=== PATIENT | male | born 1970 | race Two or more races ===

== ENCOUNTER 2025-02-19 07:13 | Emergency (ER) | payer MEDICAID, OTHER ==
[~2025-02-19] VITALS: Ht 175.3 cm; Wt 100.0 kg
--- NOTE | 2025-02-19 08:57 | ED.PDOC ---
General HPI Comments 55 y/o M, with PMHx of enlarged prostate presents to the ED for CC of urinary retention. Patient states, he has been experiencing urinary retention with associated symptoms of abdominal pain/distension and constipation xdays. Patient reports, seeing PCP for SS and being told to follow up with the ED for a further evaluation of symptoms. Patient denies fever, chills, nausea, vomiting, or melena. No other symptoms or modifying factors present at this time. Chief Complaint: Urinary Time Seen by MD: 08:45 Reviewed notes: Nurses Notes, Medications, Allergies Allergies: Coded Allergies: NO KNOWN ALLERGIES (Unverified , 02/19/25) Mode of Arrival: Ambulatory Severity: Moderate Inability to void: Moderate Timing: Days Duration: Since onset Prehospital treatment: None Onset: Spontaneous Symptoms: Inability to void History of: None Location: Abdomen Penile discharge: None Modifying factors: None associated signs and symptoms: Abdominal Pain Past Medical History PAST MEDICAL HISTORY: Denies Surgical History: Denies all surgeries Family History Family History: Unknown Social History Smoker: Non-Smoker Alcohol: Denies ETOH Use Drugs: Denies Drug Use Lives In: Home Constitutional: denies: chills, diaphoresis, fatigue, fever, malaise, sweats, weakness, others EENTM: denies: blurred vision, double vision, ear bleeding, ear discharge, ear drainage, ear pain, ear ringing, eye pain, eye redness, hearing loss, mouth pain, mouth swelling, nasal discharge, nose bleeding, nose congestion, nose pain, photophobia, tearing, throat pain, throat swelling, voice changes, others Respiratory: denies: cough, hemoptysis, orthopnea, SOB at rest, shortness of breath, SOB with excertion, stridor, wheezing, others Cardiovascular: denies: chest pain, dizzy spells, diaphoresis, Dyspnea on exertion, edema, irregular heart beat, left arm pain, lightheadedness, palpitations, PND, syncope, others Gastrointestinal: reports: abdomen distended, abdominal pain, constipated; denies: blood streaked bowels, diarrhea, dysphagia, difficulty swallowing, hematemesis, melena, nausea, poor appetite, poor fluid intake, rectal bleeding, rectal pain, vomiting, others Genitourinary: reports: others (urinary retention); denies: burning, dysuria, flank pain, frequency, hematuria, incontinence, penile discharge, penile sore, pain, testicle pain, testicle swelling, urgency Neurological: denies: dizziness, fainting, headache, left sided numbness, left sided weakness, numbness, paresthesia, pre-existing deficit, right sided numbness, right sided weakness, seizure, speech problems, tingling, tremors, weakness, others Musculoskeletal: denies: back pain, gout, joint pain, joint swelling, muscle pain, muscle stiffness, neck pain, others Integumetry: denies: bruises, change in color, change in hair/nails, dryness, laceration, lesions, lumps, rash, wounds, others Allergic/Immunocompromised: denies: Difficulty Healing, Frequent Infections, Hives, Itching, others Hematologic/Lymphatic: denies: anemia, blood clots, easy bleeding, easy bruising, swollen glands, others Endocrine: denies: excessive hunger, excessive sweating, excessive thirst, excessive urination, flushing, intolerance to cold, intolerance to heat, unexplained weight gain, unexplained weight loss, others Psychiatric: denies: anxiety, bipolar disorder, depression, hopeless, panic disorder, schizophrenia, sleepless, suicidal, others All Other Systems: Reviewed and Negative Physical Exam General Appearance: Moderate Distress, Obese HEENT: Normal ENT Inspection, Pharynx Normal, TMs Normal Neck: Full Range of Motion, Non-Tender, Normal, Normal Inspection Respiratory: Chest Non-Tender, Lungs Clear, No Accessory Muscle Use, No Respiratory Distress, Normal Breath Sounds Cardiovascular: No Edema, No JVD, No Murmur, No Gallop, Normal Peripheral Pulses, Regular Rate/Rhythm Breast Exam: Deferred Gastrointestinal: Diffuse Genitalia: Deferred Pelvic: Deferred Rectal: Deferred Extremities: No calf tenderness, Normal capillary refill, Normal inspection, Normal range of motion, Non-tender, No pedal edema Musculoskeletal : Apperance: Normal Neurologic: Alert, legislators II-XII nml as Tested, No Motor Deficits, Normal Affect, Normal Mood, No Sensory Deficits Cerebellar Function: Normal Reflexes: Normal Skin: Dry, Normal Color, Warm Peripheral Pulses: 3+ Radial (R), 3+ Radial (L) Lymphatic: No Adenopathy Was a procedure done? Was a procedure done?: No Differential Diagnosis Kidney stone (Female): N/A Urinary Problem (Male): Bladder Outlet, Bladder Obstruction, Plelonephritis, Urinary Retention, Urolithiasis Urinary Problem (Female): N/A X-Ray, Labs, Meds, VS Vital Signs Date Time Temp Pulse Resp B/P (MAP) Pulse Ox O2 Delivery O2 Flow Rate FiO2 02/19/25 07:16 97.7 76 18 135/88 96 97.7 Lab Test 02/19/25 09:10 02/19/25 08:45 Range/Units White Blood Count 6.0 4.4-10.8 10^3/uL Red Blood Count 4.92 4.5-5.90 10^6/uL Hemoglobin 15.1 13.5-17.5 g/dL Hematocrit 43.5 41.0-53.0 % Mean Corpuscular Volume 88.4 80.0-100.0 fL Mean Corpuscular Hemoglobin 30.7 28.0-32.0 pg Mean Corpuscular Hemoglobin Concent 34.8 32.0-36.0 g/dL Red Cell Distribution Width 13.3 11.8-14.3 % Platelet Count 241 140-450 10^3/uL Mean Platelet Volume 7.9 6.9-10.8 fL Neutrophils (%) (Auto) 56.0 37.0-80.0 % Lymphocytes (%) (Auto) 34.6 10.0-50.0 % Monocytes (%) (Auto) 7.1 0.0-12.0 % Eosinophils (%) (Auto) 1.8 0.0-7.0 % Basophils (%) (Auto) 0.5 0.0-2.0 % Neutrophils # (Auto) 3.3 1.6-8.6 10 ^3/uL Lymphocytes # (Auto) 2.1 0.4-5.4 10 ^3/uL Monocytes # (Auto) 0.4 0-1.3 10 ^3/uL Eosinophils # (Auto) 0.1 0-0.8 10 ^3/uL Basophils # (Auto) 0 0-0.2 10 ^3/uL Nucleated Red Blood Cells 0.1 % Sodium Level 140 136-145 mmol/L Potassium Level 3.7 3.5-5.1 mmol/L Chloride Level 106 98-107 mmol/L Carbon Dioxide Level 25 20-31 mmol/L Anion Gap 9 5-15 Blood Urea Nitrogen 11 9-23 mg/dL Creatinine 0.78 0.700-1.30 mg/dL Glomerular Filtration Rate Calc 104 >90 mL/min BUN/Creatinine Ratio 14.1 10.0-20.0 Serum Glucose 109 H 74-106 mg/dL Calcium Level 9.1 8.7-10.4 mg/dL Urine Color Light-yellow Yellow Urine Clarity Clear Clear Urine pH 6.5 5.0-9.0 Urine Specific [place] 1.022 1.001-1.035 Urine Protein Negative Negative Urine Ketones Negative Negative Urine Blood Negative Negative /uL Urine Nitrite Negative Negative Urine Bilirubin Negative Negative Urine Urobilinogen Normal Negative mg/dL Urine Leukocyte Esterase Negative Negative /uL Urine Glucose Normal Normal mg/dL Patient alert. Complaining of abdominal pain. Vitals stable. Answering questions. He is obese. His primary care physician had referred the patient to the ER. Possible history of prostate for his urinary problem. Reviewed his visit to his primary care physician. CT scan of the abdomen reviewed does not show any acute changes hepatic steatosis. He is comfortable. WBC within normal limits. Hemoglobin within normal limits. Explained to the patient. Continue monitoring. Was told to follow up with his primary care physician. Was told to come back if there is any problem. [place] [id number] Ph: [phone] DIAGNOSTIC IMAGING Diagnostic Imaging Report : [id number] Signed PATIENT: TESSY DIALCCT: [id number] UNIT: [id number] : 1970 LOC: ER ROOM / BED: / AGE / SEX: 55 / M ADM STATUS: REG ER SERVICE [id number] ORDERING PHYSICIAN: LISA DOBBS MD PROCEDURE(s): ABPL - CT AB PEL WO CON-NO ORAL OR IV REASON: appy ORDER NUMBER(s): [id number], ACCESSION NUMBER(s): [id number] CT CT AB PEL WO CON-NO ORAL OR IV INDICATION: appy EXAM DATE: 02/19/2025 09:06 AM COMPARISON: None RADIATION DOSE: CTDIvol: 25.68 mGy, DLP: 1781.79 mGy*cm PROCEDURE: Helical CT images were obtained of the abdomen and pelvis without IV contrast Sagittal and coronal reconstructions are provided. ORAL CONTRAST: None. ADDITIONAL IMAGES / REFORMATS: None All CT scans at this medical facility are performed using dose modulation techniques as appropriate to a performed exam including the following: Automated exposure control was utilized; adjustment of the MA and/or KV according to patient size; and use of iterative reconstruction technique. FINDINGS: LUNG BASE: Normal. LIVER: Hepatic steatosis. GALLBLADDER AND BILIARY TREE: No calcified gallstones. Normal caliber wall. No intra- or extrahepatic biliary ductal dilation. PANCREAS: Normal. SPLEEN: Normal. BOWEL: Normal. Appendix not seen and appears to be removed. ADRENALS: Normal. KIDNEYS AND URETER: Normal. BLADDER: Normal. REPRODUCTIVE ORGANS: Normal. LYMPH NODES:No lymphadenopathy. PERITONEUM: No ascites or free air. No other fluid collection. VESSELS: Scattered atherosclerotic calcifications are noted. RETROPERITONEUM: Normal. ABDOMINAL WALL: Small fat containing umbilical hernia. BONES: Scattered osseous degenerative changes are noted. IMPRESSION: No acute intraabdominal abnormality. Appendix not seen and appears to be removed. Hepatic steatosis. ATED BY: RODRÍGUEZ JOHNSON MD DICTATED DATE/TIME: 02/19/25 1013 SIGNED BY: RODRÍGUEZ JOHNSON MD SIGNED DATE/TIME: 02/19/25 1013 CC: Time of 1ST Reevaluation: 09:15 Reevaluation 1ST: Unchanged Time of 2ND Reevaluation: 11:11 Reevaluation 2ND: Improved Patient Education/Counseling: Diagnosis, Treatment Family Education/Counseling: No Family Present SEPSIS Sepsis Screen Date sepsis recognized/suspect: Feb 19, 2025 Time Sepsis recognized/suspect: 720 Recent Procedure: No On Antibiotic Therapy: No Respiratory Rate >20: No Heart Rate >90: No Temp<36 C (96.8 F) or >38.3 C: No SBP <90 or MAP <65 mmHG: No New Acute Mental Status Change: No Is the patient on CPAP, BIPAP,: No Physician Orders Ct Ab Pel Wo Con-No Oral Or Iv (02/19/25 08:45) Vital Signs Date Time Temp Pulse Resp B/P (MAP) Pulse Ox O2 Delivery O2 Flow Rate FiO2 02/19/25 07:16 97.7 76 18 135/88 96 97.7 Laboratory Tests Test 02/19/25 09:10 White Blood Count 6.0 10^3/uL (4.4-10.8) Departure 1 Departure Time of Disposition: 09:01 Impression: Primary Impression: Hepatic steatosis Disposition: 01 HOME / SELF CARE / HOMELESS Condition: Good Additional Instructions: [place] [address] Ph: [phone] DIAGNOSTIC IMAGING Diagnostic Imaging Report : [id number] Signed PATIENT: STALIN DIAL ACCT: [id number] UNIT: [id number] : 1970 LOC: ER ROOM / BED: / AGE / SEX: 55 / M ADM STATUS: REG ER SERVICE 0845 ORDERING PHYSICIAN: LISA DOBBS MD PROCEDURE(s): ABPL - CT AB PEL WO CON-NO ORAL OR IV REASON: appy ORDER NUMBER(s): [id number], ACCESSION NUMBER(s): [id number] CT CT AB PEL WO CON-NO ORAL OR IV INDICATION: appy EXAM DATE: 02/19/2025 09:06 AM COMPARISON: None RADIATION DOSE: CTDIvol: 25.68 mGy, DLP: 1781.79 mGy*cm PROCEDURE: Helical CT images were obtained of the abdomen and pelvis without IV contrast Sagittal and coronal reconstructions are provided. ORAL CONTRAST: None. ADDITIONAL IMAGES / REFORMATS: None All CT scans at this medical facility are performed using dose modulation techniques as appropriate to a performed exam including the following: Automated exposure control was utilized; adjustment of the MA and/or KV according to patient size; and use of iterative reconstruction technique. FINDINGS: LUNG BASE: Normal. LIVER: Hepatic steatosis. GALLBLADDER AND BILIARY TREE: No calcified gallstones. Normal caliber wall. No intra- or extrahepatic biliary ductal dilation. PANCREAS: Normal. SPLEEN: Normal. BOWEL: Normal. Appendix not seen and appears to be removed. ADRENALS: Normal. KIDNEYS AND URETER: Normal. BLADDER: Normal. REPRODUCTIVE ORGANS: Normal. LYMPH NODES:No lymphadenopathy. PERITONEUM: No ascites or free air. No other fluid collection. VESSELS: Scattered atherosclerotic calcifications are noted. RETROPERITONEUM: Normal. ABDOMINAL WALL: Small fat containing umbilical hernia. BONES: Scattered osseous degenerative changes are noted. IMPRESSION: No acute intraabdominal abnormality. Appendix not seen and appears to be removed. Hepatic steatosis. ATED BY: RODRÍGUEZ JOHNSON MD DICTATED DATE/TIME: 02/19/25 1013 SIGNED BY: RODRÍGUEZ JOHNSON MD SIGNED DATE/TIME: 02/19/25 1013 CC: Discharged With: Self Critical Care Note Critical Care Time?: No Stability Stability form required: No Heart Score Heart Score: Heart Score Response (Comments) Value History N/A 0 EKG N/A 0 Age N/A 0 Risk Factors N/A 0 Troponin N/A 0 Total 0 I personally scribed for LISA DOBBS MD ([email or web address]) on 02/19/25 at 08:57. Electronically submitted by Lavonne Irving ([email or web address]). I personally scribed for LISA DOBBS MD ([email or web address]) on 02/19/25 at 10:20. Electronically submitted by Lavonne Irving ([email or web address]). LISA DOBBS MD Feb 19, 2025 08:57
[2025-02-19 09:33] LABS: Hematocrit 43.5 % (41.0-53.0); Hemoglobin 15.1 g/dL (13.5-17.5); Mean Corpuscular Hemoglobin 30.7 pg (28.0-32.0); Mean Corpuscular Volume 88.4 fL (80.0-100.0); Nucleated Red Blood Cells % 0.1 %
[2025-02-19 09:42] LABS: Chloride 106 mmol/L (98-107); Potassium 3.7 mmol/L (3.5-5.1); Sodium 140 mmol/L (136-145)
[2025-02-19 09:43] LABS: Urine Protein, UAD Negative (Negative)
[2025-02-19 09:43] LABS: Anion Gap 9 (5-15); Calcium 9.1 mg/dL (8.7-10.4); Carbon Dioxide 25 mmol/L (20-31)
[2025-02-19 09:48] LABS: BUN/Creatinine Ratio 14.1 (10.0-20.0); Blood Urea Nitrogen 11 mg/dL (9-23)
[2025-02-19 09:50] LABS: Glucose 109 mg/dL (74-106)
--- NOTE | 2025-02-19 10:16 | DVH ---
CT CT AB PEL WO CON-NO ORAL OR IV INDICATION: appy EXAM DATE: 02/19/2025 09:06 AM COMPARISON: None RADIATION DOSE: CTDIvol: 25.68 mGy, DLP: 1781.79 mGy*cm PROCEDURE: Helical CT images were obtained of the abdomen and pelvis without IV contrast Sagittal and coronal reconstructions are provided. ORAL CONTRAST: None. ADDITIONAL IMAGES / REFORMATS: None All C T scans at this medical facility are performed using dose modulation techniques as appropriate to a p erformed exam including the following: Automated exposure control was utilized; adjustment of the MA and/or KV according to patient size; and use of iterative reconstruction technique. FINDINGS: LUNG BASE: Normal. LIVER: Hepatic steatosis. GALLBLADDER AND BILIARY TREE: No calcified gallstones. Normal caliber wall. No intra- or extrahepatic biliary ductal dilation. PANCREAS: Normal. SPLEEN: Normal. BOWEL: Normal. Appendix not seen and appears to be removed. ADRENALS: Normal. KIDNEYS AND URETER: Normal. BLADDER: Normal. REPRODUCTIVE ORGANS: Normal. LYMPH NODES:No lymphadenopathy. PERITONEUM: No ascites or free air. No other fluid collection. VESSELS: Scattered atherosclerotic calcifications are noted. RETROPERITONEUM: Normal. ABDOMINAL WALL: Small fat containing umbilical hernia. BONES: Scattered osseous degenerative changes are noted. IMPRESSION: No acute intraabdominal abnormality. Appendix not seen and appears to be removed. Hepatic steatosis.
[2025-02-19 11:33] VITALS: BP 127/86; PULSE 61; RESP 18; TEMP 97.4; O2SAT 94
== END 2025-02-19 11:35 | disposition home or self-care (01) ==
LOC: ER 07:13
DX: K76.0 Fatty (change of) liver, not elsewhere classified (principal)
CPT/HCPCS: 36415; 74176; 80048; 81003; 85025